=== PATIENT | female | born 1990 | race Caucasian/White ===

== ENCOUNTER 2017-02-08 01:56 | Inpatient (IN) ==
[2017-02-08] MEDS ORDERED: ONDANSETRON 4 MG/2 ML VIAL IV PRN ×2 (02:14→10:24)
[2017-02-08] MEDS ORDERED: BUTORPHANOL 2 MG/ML VIAL IV PRN (02:14)
[2017-02-08] MEDS ORDERED: LACTATED RINGERS 1,000 ML IV SCH (02:30)
[2017-02-08] MEDS ORDERED: ACETAMINOPHEN 325 MG TABLET PO PRN ×2 (02:54→10:24)
[2017-02-08] MEDS ORDERED: TERBUTALINE 1 MG/1 ML VIAL SUBCUT PRN (02:54)
[2017-02-08] MEDS ORDERED: CITRIC ACID/SODIUM CITRATE 30 ML UDCUP PO ONE (02:56)
[2017-02-08] MEDS ORDERED: PANTOPRAZOLE 40 MG VIAL IV ONE (02:56)
[2017-02-08] MEDS ORDERED: FAMOTIDINE 20 MG/2 ML VIAL IV ONE (02:56)
[2017-02-08] MEDS ORDERED: fentaNYL 2 MCG/ROPIV 0.2% EPID 150 ML EPIDURAL SCH (02:56)
[2017-02-08] MEDS ORDERED: OXYTOCIN/LR 20 UNIT/1,000 ML BAG IV SCH (03:00)
[2017-02-08] MEDS ORDERED: ePHEDrine 50 MG/ML AMP ONE (03:11)
[2017-02-08 03:21] LABS: Basophils # 0.1 10*3/uL (0.0-0.2); Basophils % 0.4 % (0.0-0.8); Eosinophils % 0.2 % (0.00-10.9); Hematocrit 31.3 VOL% (35.7-47.0); Hemoglobin 10.4 GM/DL (12.0-16.0); Immature Granulocytes % 0.6 %; Immature Granulocytes Absolute 0.08 #; Lymphocytes % 14.9 % (21.3-54.2); Mean Corpuscular HGB Conc 33.2 GM/DL (32-36); Mean Corpuscular Hemoglobin 29 PG (27-34); Mean Corpuscular Volume 87.4 FL (87-102); Monocytes # 0.9 10*3/uL (0.11-0.8); Monocytes % 6.7 % (1.7-12.7); Neutrophils # 10.5 10*3/uL (1.4-7.4); Neutrophils % 77.2 % (38.7-73.9); Platelet Count 123 T/CUMM (130-400); Red Blood Count 3.58 MC/CUMM (3.8-5.5); Red Cell Distribution Width 13.2 % (9.3-17.3); White Blood Count 13.5 T/CUMM (4-12)
[2017-02-08] MEDS: LACTATED RINGERS 1,000 ML IV SCH ×2 (03:45→06:30)
[2017-02-08 04:12] LABS: Alanine Aminotransferase 19 U/L (13-56); Albumin 2.8 G/DL (3.4-5.0); Alkaline Phosphatase 160 U/L (45-117); Aspartate Amino Transferase 21 U/L (0-37); Bilirubin,Total < 0.39 MG/DL (0.2-1.0); Calcium 8.7 MG/DL (8.5-10.1); Total Protein 5.9 G/DL (6.4-8.3)
[2017-02-08 04:13] LABS: Blood Urea Nitrogen 9 MG/DL (7-18); Glucose 100 MG/DL (74-106); Osmolality,Calculated 281.1 MOS/KG (273-304); Potassium 3.8 MMOL/L (3.5-5.1); Sodium 142 MMOL/L (136-145)
[2017-02-08 05:10] LABS: Apearance,Urine CLEAR (Clear); Bilirubin,Urine Negative (Negative); Blood, Urine Negative (Negative); Glucose,Urine (UA) Negative (Negative); Ketones,Urine 20 mg/dL (Negative); Mucus,Urine Few /LPF (Occasional); Nitrite,Urine Negative (Negative); Protein,Urine Negative; RBC,Urine 2 /HPF (0-4); Squamous Epithelial Cell,Urine Occasional /HPF (0-10); Urine Color Yellow (Yellow); Urine Urobilinogen < 2.0 EU/DL (0.2-1.0); WBC,Urine <1 /HPF (0-6)
[2017-02-08] MEDS: ePHEDrine 50 MG/ML AMP IV PRN ×2 (06:44→06:52)
--- NOTE | 2017-02-08 07:13 | OB/GYN History & Physical ---
History of Present Illness Chief complaint: 38 weeks active labor History of present illness: Ms. Guzman is a 26 year old female At approximately 38 weeks estimated gestational age who was seen yesterday as an outpatient was noted to be 2 cm dilated was watched for 4 hours had no cervical change and no regular uterine contractions. Patient lives in [facility] our way was given the option of staying overnight for observation however she decided to go ahead and go home. She later presented early this morning at 6 cm dilated with bulging bag of steele consequently admitted for expected vaginal delivery. Clinical estimated weight is 7 pounds medical clinical pelvimetry Home Medications Medication Instructions Recorded Confirmed Type Multivitamin () [ 1 tablet PO DAILY 11/25/16 02/08/17 History Vitamin] Allergies Allergy/AdvReac Type Severity Reaction Status Date / Time No Known Allergies Allergy Verified 02/08/17 02:03 12 point system: reviewed and no additional remarkable complaints except as stated Medical,Surgical,& Family Hx - Medical History Reproductive: No history of: Ectopic , Complication - Surgical History Abdominal Surgeries: Patient denies: Abdominal Surgery Reproductive Surgeries: Patient denies;: Section - Family History Family History: Reports;: Family Cancer, Family Diabetes, Family Hypertension Denies;: Family Anesthesia Reaction, Family Heart Disease, Family Hematology , Family Psychiatric Problems, Family Stroke, Additional Family History - Social History Smoking Status: Never smoker Frequency of Alcohol Use: None Type of Drug Use: None 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 - Constitutional Vitals: Vital Signs Temp Pulse Resp BP Pulse Ox 02/08/17 04:00 97.6 F 77 20 119/66 99 General appearance: normal weight, no acute distress - Head Head exam: Present: normal inspection, normocephalic, atraumatic - Eye Eye exam: Present: EOMI - Neck Neck exam: Present: normal inspection - Respiratory Respiratory exam: Present: clear to auscultation bilaterally - Breast Breasts: as per HPI Menstruation: as per HPI - Cardiovascular Cardiovascular exam: Present: regular rate and rhythm - GI/Abdominal GI/Abdominal exam: Present: normal bowel sounds - Extremities Exam Extremities exam: Present: normal inspection, normal capillary refill - Back Exam Back exam: Present: normal inspection - Psychiatric Psychiatric exam: Present: normal affect, normal mood - Skin Skin exam: Present: normal color, warm Assessment and Plan (1) with 38 completed weeks gestation Status: Acute Current Visit: Yes (2) Active labor at term Status: Acute Current Visit: Yes Results - Labs CBC & BMP: 02/08/17 03:12 02/08/17 03:12
[2017-02-08] MEDS ORDERED: LIDOCAINE 1%/EPI INJ 20 ML VIAL ONE (09:58)
[2017-02-08] MEDS ORDERED: MEASLES/MUMPS/RUBELLA VACCINE 0.5 ML VIAL SUBCUT ONE (10:24)
[2017-02-08] MEDS ORDERED: oxyCODONE/ACETAMINOPHEN 5-325 MG TABLET PO PRN (10:24)
[2017-02-08] MEDS ORDERED: BENZOCAINE 20%/MENTHOL 0.5% SPRAY 56 GM CAN TOP PRN (10:24)
[2017-02-08] MEDS ORDERED: WITCH HAZEL PADS 100/JAR TOP PRN (10:24)
[2017-02-08] MEDS ORDERED: OXYTOCIN/LR 20 UNIT/1,000 ML BAG IV ONE (10:24)
[2017-02-08] MEDS ORDERED: BISACODYL 10 MG SUPP RECTAL PRN (10:24)
[2017-02-08] MEDS ORDERED: DIPH/TET/ACEL PERT BOOSTER VACCINE 0.5 ML VIAL IM ONE (10:24)
[2017-02-08] MEDS ORDERED: HYDROCORTISONE 2.5% RECTAL CREAM 30 GM TUBE TOP PRN (10:24)
[2017-02-08] MEDS ORDERED: RHO(D) IMMUNE GLOBULIN 300 MCG SYRINGE IM ONE (10:24)
[2017-02-08] MEDS ORDERED: LANOLIN 50% CREAM 0.3 OZ TUBE TOP PRN (10:24)
--- NOTE | 2017-02-08 10:24 | OB/GYN Progress Note ---
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 Villavicencio dictating vaginal delivery And in LDR environment under sterile conditions, the patient progressed to completely dilated. She was allowed to push and under [epidural] anesthesia had a normal spontaneous vaginal delivery of a live born [male] 7 lbs. 7 oz. Apgars 8 9 over a second-degree midline tear. The infant's nose and oropharynx were bulb and DeLee suctioned, and the infant had spontaneous cry after delivery. The cord was doubly clamped and cut and the infant was handed over to the pediatric team for care. Cord blood was obtained the placenta delivered spontaneously intact and IV Pitocin was done. There were no cervical tears. There were no periurethral tears. Estimated blood loss was 250 mL. There were no complications. The bladder was emptied using a catheter prior to delivery. All sponge needle and instrument counts were correct -3 at the end of the delivery. The infant was taken to nursery in stable condition Exam FAMILY AND DIVORCE LEGAL ASSISTANT - Constitutional Vitals: Vital Signs Temp Pulse Resp BP Pulse Ox 02/08/17 04:00 97.6 F 77 20 119/66 99 Results - Labs CBC & BMP: 02/08/17 03:12 02/08/17 03:12
[2017-02-08] MEDS: oxyCODONE/ACETAMINOPHEN 5-325 MG TABLET PO PRN (13:12)
--- NOTE | 2017-02-08 18:27 | OB/GYN Progress Note ---
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: Subj Interval history: Patient is doing well she is eating ambulating and voiding She is afebrile and her vital signs are stable Her fundus is firm and contracted She has decreased lochia Assessment #1 day #1 doing well Plan continue present management Exam AUTOMATIC MACHINES SUPERVISOR - Constitutional Vitals: Vital Signs Temp Pulse Resp BP Pulse Ox 02/08/17 16:00 98.3 F 99 H 20 108/62 98 02/08/17 13:45 92 H 20 111/64 99 02/08/17 12:45 99.2 F 89 20 99/87 100 02/08/17 12:00 97.8 F 02/08/17 10:30 97.8 F 02/08/17 08:00 97.9 F 02/08/17 07:00 97.9 F 02/08/17 04:00 97.6 F 77 20 119/66 99 Results - Labs CBC & BMP: 02/08/17 03:12 02/08/17 03:12
[2017-02-08] MEDS: IBUPROFEN 800 MG TABLET PO PRN (20:05)
[2017-02-08] MEDS: DOCUSATE SODIUM 100 MG CAPSULE PO SCH (20:41)
[2017-02-09 06:20] LABS: Basophils # 0.1 10*3/uL (0.0-0.2); Basophils % 0.3 % (0.0-0.8); Eosinophils # 0.1 10*3/uL (0.0-0.87); Eosinophils % 0.7 % (0.00-10.9); Hematocrit 24.8 VOL% (35.7-47.0); Immature Granulocytes % 0.7 %; Immature Granulocytes Absolute 0.11 #; Lymphocytes # 2.5 10*3/uL (1.4-4.0); Lymphocytes % 16.9 % (21.3-54.2); Mean Corpuscular HGB Conc 32.7 GM/DL (32-36); Mean Corpuscular Hemoglobin 29 PG (27-34); Mean Corpuscular Volume 89.2 FL (87-102); Mean Platelet Volume 14.1 FL (9.6-12.0); Monocytes # 0.9 10*3/uL (0.11-0.8); Monocytes % 6.1 % (1.7-12.7); Neutrophils # 11.3 10*3/uL (1.4-7.4); Neutrophils % 75.3 % (38.7-73.9); Platelet Count 106 T/CUMM (130-400); Red Cell Distribution Width 13.6 % (9.3-17.3)
[2017-02-09] MEDS: IBUPROFEN 800 MG TABLET PO PRN ×3 (06:23→21:40)
[2017-02-09 06:24] LABS: Hemoglobin 8.1 GM/DL (12.0-16.0); Red Blood Count 2.78 MC/CUMM (3.8-5.5)
--- NOTE | 2017-02-09 08:33 | OB/GYN Progress Note ---
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 - PN: Subj Interval history: Patient is doing well she is eating ambulating and voiding She is afebrile and her vital signs are stable Her fundus is firm and contracted She has decreased lochia Assessment #1 day #1 doing well Plan continue present management with expected DC tomorrow Exam REGIONAL EDUCATION COORDINATOR - Constitutional Vitals: Vital Signs Temp Pulse Resp BP Pulse Ox 02/09/17 07:33 96.3 F L 98 H 17 118/67 97 02/09/17 04:00 97.6 F 99 H 18 117/60 97 02/09/17 02:00 18 02/09/17 00:00 97.1 F L 118 H 18 98/62 98 02/08/17 22:00 18 02/08/17 20:00 98.9 F 115 H 20 131/83 98 02/08/17 16:00 98.3 F 99 H 20 108/62 98 02/08/17 13:45 92 H 20 111/64 99 02/08/17 12:45 99.2 F 89 20 99/87 100 02/08/17 12:00 97.8 F 02/08/17 10:30 97.8 F Results - Labs CBC & BMP: 02/09/17 05:58 02/08/17 03:12
[2017-02-09] MEDS ORDERED: MULTIVITAMIN PO SCH (09:00)
--- NOTE | 2017-02-09 09:16 | Discharge Summary ---
Hospital Course - Hospital Course Hospital Course: the patient did well. She had quick return of bowel and bladder function patient. She remained afebrile and normotensive throughout her hospitalization. She is consequently discharged on day #2 on a regular diet Diagnosis - Discharge Diagnosis (1) with 38 completed weeks gestation Status: Acute (2) Active labor at term Status: Acute Discharge Plan - Discharge Data Disposition: Disch To Home/Self Care Condition at Discharge: Stable Discharge Diet: regular diet Activity: increase activity as tolerated, other (Pelvic rest) Hygiene: may shower Weight Bearing at Discharge: full weight bearing Driving: no restrictions Contact your physician if you experience:: fever over 101, Difficulty voiding, Redness or swelling, Nausea/Vomiting, Shortness of breath, Bleeding, pain uncontrolled by pain medications - Discharge Medications New HYDROcodone/ACETAMIN 5-325 [Altus 5-325] 1 tablet PO Q4H PRN #15 tablet PRN Reason: Abdominal Pain Continue Multivitamin () [ Vitamin] 1 tablet PO DAILY - Follow Up or Referral Follow Up: Eliot Villavicencio MD [Physician] - 2 Weeks - Forms/Instructions Exam - Constitutional Vitals: Period Temp Pulse Resp BP Sys/Larose Pulse Ox Last 24 Hr 96.3 F-99.2 F 89-118 17-20 98-131/60-87 97-100 Discharge Results Labs on day of discharge: Labs from last 24 hours 02/09/17 05:58 WBC 15.0 H RBC 2.78 L D Hgb 8.1 L D Hct 24.8 L MCV 89.2 MCH 29 MCHC 32.7 RDW 13.6 Plt Count 106 L MPV 14.1 H Neut % (Auto) 75.3 H Lymph % (Auto) 16.9 L [place] % (Auto) 6.1 Eos % (Auto) 0.7 Baso % (Auto) 0.3 Neut # (Auto) 11.3 H Lymph # (Auto) 2.5 [place] # (Auto) 0.9 H Eos # (Auto) 0.1 Baso # (Auto) 0.1 Immature Gran % 0.7 Nucleated RBC % 0.0 Immature Gran # 0.11 Nucleated RBCs # 0.00 DS: Provider Date of admission: 02/08/17 01:57 Primary care physician: Jackeline Rodriguez, Attending physician on admission: Shantel Santos Consults: 02/08/17 02:54 Consult to Anesthesiology [CONS] Routine Consulting Provider: Reason for Anesthesiology: Epidural Consult Comment: Epidural for pain managment 02/08/17 10:24 Consult to Ocularist [CONS] Routine Consult Ocularist: Breast Feeding Discharging clinician: Shantel Santos Expected date of discharge: 02/10/17
[2017-02-09] MEDS: DOCUSATE SODIUM 100 MG CAPSULE PO SCH ×2 (09:30→21:39)
--- NOTE | 2017-02-09 10:01 | Anesthesia ---
Anesthesia Post OP - Post Ansesthetic Evaluation Patient seen in post op: Yes Resp: within normal limits CV: within normal limits Mental: within normal limits Temp: within normal limits [id number]: within normal limits Nausea and Vomiting: within normal limits Pain: within normal limits
[2017-02-10] MEDS: oxyCODONE/ACETAMINOPHEN 5-325 MG TABLET PO PRN (06:04)
[2017-02-10 08:52] VITALS: BP 117/64
[2017-02-10] MEDS: DOCUSATE SODIUM 100 MG CAPSULE PO SCH (09:26)
== END 2017-02-10 11:10 | disposition home or self-care (01) | DRG 775 ==
LOC: N.LDOUT 01:56 → N.LD 01:57 → N.OB 12:40
PROVIDERS: ADMIT Specialist; ATTEND Specialist

== ENCOUNTER 2021-11-20 22:50 | Inpatient (IN) ==
[2021-11-20 23:23] LABS: Bacteria,Urine Occasional /HPF (Few); Bilirubin,Urine Negative (Negative); Blood, Urine Small mg/dL (Negative); Glucose,Urine (UA) Negative (Negative); Ketones,Urine 20 mg/dL (Negative); Mucus,Urine Moderate /LPF (Occasional); Nitrite,Urine Negative (Negative); Protein,Urine 30 MG/DL; Squamous Epithelial Cell,Urine Occasional /HPF (0-10); Urine Appearance Slightly Hazy (Clear); Urine Color Amber (Yellow); Urine Specific Gravity 1.018 (1.001-1.035)
[2021-11-21] MEDS ORDERED: ONDANSETRON 4 MG/2 ML VIAL IV PRN ×2 (02:44→09:35)
[2021-11-21] MEDS ORDERED: BUTORPHANOL 1 MG/ML VIAL IV ONE (02:45)
[2021-11-21] MEDS ORDERED: AMPICILLIN INJ 2,000 MG in SODIUM CHLORIDE 0.9% 100 ML IV ONE (03:46)
[2021-11-21] MEDS ORDERED: LACTATED RINGERS 1,000 ML IV ONE (03:55)
[2021-11-21] MEDS ORDERED: CITRIC ACID/SODIUM CITRATE 30 ML UDCUP PO ONE (03:55)
[2021-11-21] MEDS ORDERED: ePHEDrine 50 MG/ML VIAL IV PRN (03:55)
[2021-11-21] MEDS ORDERED: PROMETHAZINE 25 MG/1 ML VIAL IM ONE (03:55)
[2021-11-21] MEDS ORDERED: NALOXONE 0.4 MG/ML VIAL IV PRN (03:55)
[2021-11-21] MEDS ORDERED: hydrOXYzine HCL 25 MG/1 ML VIAL IM PRN (03:55)
[2021-11-21] MEDS ORDERED: FAMOTIDINE 20 MG/2 ML VIAL IV ONE (03:55)
[2021-11-21] MEDS ORDERED: diphenhydrAMINE 50 MG/1 ML VIAL IV PRN ×2 (03:55)
[2021-11-21] MEDS ORDERED: fentaNYL 2 MCG/ROPIV 0.2% EPID 100 ML EPIDURAL SCH (04:00)
[2021-11-21] MEDS ORDERED: LACTATED RINGERS 1,000 ML IV SCH (04:00)
[2021-11-21] MEDS ORDERED: MEPERIDINE 50 MG/1 ML VIAL IV ONE (04:26)
[2021-11-21 05:11] LABS: Basophils % 0.2 % (0.0-0.8); Eosinophils % 0.4 % (0.00-10.9); Hematocrit 27.4 VOL% (35.7-47.0); Hemoglobin 8.7 GM/DL (12.0-16.0); Immature Granulocytes % 0.8 %; Immature Granulocytes Absolute 0.07 #; Lymphocytes % 21.7 % (21.3-54.2); Mean Corpuscular HGB Conc 31.8 GM/DL (32-36); Mean Corpuscular Volume 82.5 FL (87-102); Mean Platelet Volume 13.9 FL (9.6-12.0); Monocytes % 4.3 % (1.7-12.7); Neutrophils % 72.6 % (38.7-73.9); Platelet Count 127 T/CUMM (130-400); Red Blood Count 3.32 MC/CUMM (3.8-5.5); Red Cell Distribution Width 14.9 % (9.3-17.3); White Blood Count 9.3 T/CUMM (4-12)
[2021-11-21] MEDS ORDERED: miSOPROStoL 200 MCG TABLET ONE (05:37)
[2021-11-21] MEDS ORDERED: TRANEXAMIC ACID 1,000 MG/10 ML VIAL ONE (05:37)
[2021-11-21] MEDS ORDERED: METHYLERGONOVINE 0.2 MG/1 ML AMP ONE (05:38)
[2021-11-21] MEDS ORDERED: OXYTOCIN/LR 20 UNIT/1,000 ML BAG IV ONE ×2 (05:38→09:35)
[2021-11-21] MEDS ORDERED: SODIUM CHLORIDE 0.9% 0 ML IV ONE (05:38)
[2021-11-21] MEDS ORDERED: CARBOPROST TROMETHAMINE 250 MCG/ML AMP IM ONE (05:38)
[2021-11-21] MEDS ORDERED: AMPICILLIN INJ 1,000 MG in SODIUM CHLORIDE 0.9% 100 ML IV SCH (08:00)
[2021-11-21 08:06] LABS: Cord Venous Blood HCO3 21.2 MMOL/L; Cord Venous Blood PCO2 39.3 MMHG; Cord Venous Blood PO2 29.5 MMHG
[2021-11-21] MEDS ORDERED: HYDROCORTISONE 2.5% RECTAL CREAM 30 GM TUBE TOP PRN (09:35)
[2021-11-21] MEDS ORDERED: BISACODYL 10 MG SUPP RECTAL PRN (09:35)
[2021-11-21] MEDS ORDERED: DIPH/TET/ACEL PERT BOOSTER VACCINE 0.5 ML VIAL IM ONE (09:35)
[2021-11-21] MEDS ORDERED: WITCH HAZEL PADS 100/JAR TOP PRN (09:35)
[2021-11-21] MEDS ORDERED: LANOLIN 50% CREAM 0.3 OZ TUBE TOP PRN (09:35)
[2021-11-21] MEDS ORDERED: MEASLES/MUMPS/RUBELLA VACCINE 0.5 ML VIAL SUBCUT ONE (09:35)
[2021-11-21] MEDS ORDERED: RHO(D) IMMUNE GLOBULIN 300 MCG SYRINGE IM ONE (09:35)
[2021-11-21] MEDS ORDERED: ACETAMINOPHEN 325 MG TABLET PO PRN (09:35)
[2021-11-21] MEDS ORDERED: oxyCODONE/ACETAMINOPHEN 5-325 MG TABLET PO PRN ×2 (09:35)
[2021-11-21] MEDS ORDERED: BENZOCAINE 20%/MENTHOL 0.5% SPRAY 56 GM CAN TOP PRN (09:35)
[2021-11-21] MEDS: IBUPROFEN 800 MG TABLET PO PRN (14:36)
[2021-11-21] MEDS: DOCUSATE SODIUM 100 MG CAPSULE PO SCH (21:13)
[2021-11-21] MEDS: PANTOPRAZOLE 40 MG TABLET PO SCH (21:52)
[2021-11-22 05:29] LABS: Basophils % 0.3 % (0.0-0.8); Eosinophils # 0.1 10*3/uL (0.0-0.87); Eosinophils % 0.8 % (0.00-10.9); Hematocrit 24.4 VOL% (35.7-47.0); Hemoglobin 7.6 GM/DL (12.0-16.0); Immature Granulocytes % 1.3 %; Immature Granulocytes Absolute 0.13 #; Lymphocytes # 2.1 10*3/uL (1.4-4.0); Lymphocytes % 21.1 % (21.3-54.2); Mean Corpuscular HGB Conc 31.1 GM/DL (32-36); Mean Corpuscular Volume 83.8 FL (87-102); Neutrophils % 71.5 % (38.7-73.9); Platelet Count 122 T/CUMM (130-400); Red Blood Count 2.91 MC/CUMM (3.8-5.5); Red Cell Distribution Width 15.3 % (9.3-17.3); White Blood Count 10.1 T/CUMM (4-12)
[2021-11-22] MEDS: PANTOPRAZOLE 40 MG TABLET PO SCH ×2 (08:38→22:06)
[2021-11-22] MEDS: DOCUSATE SODIUM 100 MG CAPSULE PO SCH ×2 (08:38→22:06)
[2021-11-22] MEDS: IRON (CARBONYL)/VIT C/B12/FA TABLET PO SCH (08:38)
[2021-11-22] MEDS: IBUPROFEN 800 MG TABLET PO PRN ×2 (08:43→17:49)
[2021-11-22] MEDS ORDERED: ESCITALOPRAM 10 MG TABLET PO ONE (09:00)
[2021-11-23] MEDS: IBUPROFEN 800 MG TABLET PO PRN (04:01)
[2021-11-23 07:51] VITALS: BP 112/67
[2021-11-23] MEDS: IRON (CARBONYL)/VIT C/B12/FA TABLET PO SCH (09:16)
[2021-11-23] MEDS: DOCUSATE SODIUM 100 MG CAPSULE PO SCH (09:16)
[2021-11-23] MEDS: PANTOPRAZOLE 40 MG TABLET PO SCH (09:17)
[2021-11-23] MEDS ORDERED: ESCITALOPRAM 10 MG TABLET PO SCH (09:23)
== END 2021-11-23 11:17 | disposition home or self-care (01) | DRG 807 ==
LOC: N.LD 22:50 → N.OB 11-21 09:33
PROVIDERS: ADMIT Specialist; ATTEND Specialist